=== PATIENT | female | born 1960 | race Caucasian/White ===

== ENCOUNTER 2023-12-09 11:57 | Emergency (ER) | payer MEDICAID ==
[2023-12-09 12:26] LABS: BASOPHILS # (AUTO) 0.1 10^3/uL (0.0-0.1); BASOPHILS % (AUTO) 0.7 %; EOSINOPHILS # (AUTO) 0.5 10^3/uL (0.0-0.7); EOSINOPHILS % (AUTO) 5.5 %; HCT - HEMATOCRIT 40.4 % (37.0-47.0); HGB - HEMOGLOBIN 13.5 g/dL (12.0-16.0); LYMPHOCYTES # (AUTO) 1.8 10^3/uL (1.5-3.5); LYMPHOCYTES % (AUTO) 21.2 %; MEAN CORPUSCULAR HEMOGLOBIN 30.1 pg (27.0-31.0); MEAN CORPUSCULAR HGB CONC 33.4 g/dL (32.0-36.0); MEAN CORPUSCULAR VOLUME 90.2 fL (81.0-99.0); MEAN PLATELET VOLUME 9.9 fL (7.9-10.8); MONOCYTES # (AUTO) 0.5 10^3/uL (0.0-1.0); MONOCYTES % (AUTO) 5.7 %; NEUTROPHILS # (AUTO) 5.8 10^3/uL (1.5-6.6); NEUTROPHILS % (AUTO) 66.7 %; PLT - PLATELET COUNT 319 10^3/uL (130-450); RED BLOOD COUNT 4.48 10^6/uL (4.20-5.40); RED CELL DISTRIBUTION WIDTH 13.2 % (12.0-15.0); WHITE BLOOD COUNT 8.7 x10^3/uL (4.8-10.8)
--- NOTE | 2023-12-09 12:27 | ED Physician Documentation ---
PD HPI CHEST PAIN - Stated complaint Stated Complaint: CHEST PX - Chief complaint Chief Complaint: Cardiac - History obtained from History obtained from: Patient - History of Present Illness Timing - onset: How many hours ago (2), Today Timing - onset during: Other (after lawrence chi this morning) Timing - duration: Hours (2) Timing - details: Abrupt onset Pain level max: 6 Pain level now: 1 Quality: Pressure Location: Substernal Radiation: No: Jaw, Neck, Back, Abdominal, Left upper extremity, Right upper extremity Improved by: Nothing. No: Rest Worsened by: No: Exertion, Inspiration, Eating, Movement, Palpation, Position Associated symptoms: No: Shortness of air, Diaphoresis, Nausea, Vomiting, Feeling faint / dizzy, General Weakness, Palpitations, Cough Recently seen: Not recently seen Review of Systems Constitutional: denies: Fever, Chills Nose: denies: Rhinorrhea / runny nose, Congestion Cardiac: denies: Palpitations Respiratory: denies: Dyspnea, Cough GI: denies: Nausea, Vomiting, Diarrhea Skin: denies: Rash Musculoskeletal: denies: Neck pain, Back pain Neurologic: denies: Headache PD PAST MEDICAL HISTORY - Past Medical History Past Medical History: Yes Cardiovascular: Hypertension Endocrine/Autoimmune: Type 2 diabetes, HyPOthyroidism - Past Surgical History Past Surgical History: Yes HEENT: Tonsil/Adenoidectomy - Allergies Allergies/Adverse Reactions: Allergies Allergy/AdvReac Type Severity Reaction Status Date / Time No Known Drug Allergies Allergy Verified 12/09/23 12:03 - Social History Does the pt smoke?: No Smoking Status: Never smoker Does the pt drink ETOH?: No Does the pt have substance abuse?: No - Immunizations Immunizations are current?: Yes - POLST Patient has POLST: No PD ED PE NORMAL - Vitals Vital signs reviewed: Yes - General General: Alert and oriented X 3, No acute distress - HEENT HEENT: Moist mucous membranes - Neck Neck: Supple, no meningeal sign, No JVD, No bruit - Cardiac Cardiac: RRR, Strong equal pulses - Respiratory Respiratory: No respiratory distress, Clear bilaterally - Abdomen Abdomen: Soft, Non tender, Non distended - Back Back: No CVA TTP, No spinal TTP - Derm Derm: Warm and dry - Extremities Extremities: No edema, No calf tenderness / cord - Neuro Neuro: Alert and oriented X 3 - Psych Psych: Normal mood, Normal affect - Free text exam Free text exam: no chest wall tenderness Results - Vitals Vitals: Vital Signs - 24 hr 12/09/23 12/09/23 12/09/23 12:03 12:41 13:11 Temperature 36.8 C Heart Rate 83 73 71 Respiratory 16 17 18 Rate Blood Pressure 160/84 H 123/96 H 136/75 H O2 Saturation 96 94 93 12/09/23 12/09/23 12/09/23 13:41 14:00 14:30 Temperature Heart Rate 69 68 68 Respiratory 18 17 17 Rate Blood Pressure 135/76 H 130/75 136/77 H O2 Saturation 94 94 94 Oxygen O2 Source Room air - EKG (time done) 1208 EKG releavant findings:: EKG personally interpreted by author of this note. Relevant findings are: Rate: Rate (enter#) (77) Rhythm: NSR [place]: Normal Intervals: Normal [place] QRS: Normal Ischemia: Normal ST segments - Labs Labs: Laboratory Tests 12/09/23 12/09/23 12/09/23 12:21 12:21 14:01 WBC 8.7 RBC 4.48 Hgb 13.5 Hct 40.4 MCV 90.2 MCH 30.1 MCHC 33.4 RDW 13.2 Plt Count 319 MPV 9.9 Neut # (Auto) 5.8 Lymph # (Auto) 1.8 Pender # (Auto) 0.5 Eos # (Auto) 0.5 Baso # (Auto) 0.1 Absolute Nucleated RBC 0.00 Nucleated RBC % 0.0 Sodium 138 Potassium 3.7 Chloride 103 Carbon Dioxide 28 Anion Gap 7.0 BUN 10 Creatinine 0.6 Estimated GFR (MDRD) 102 Glucose 141 H Calcium 9.9 Total Bilirubin 0.7 AST 22 ALT 22 Alkaline Phosphatase 62 Troponin I High Sens 3.0 3.0 Total Protein 7.2 Albumin 4.5 Globulin 2.7 Albumin/Globulin Ratio 1.7 Lipase 15 - Rads (name of study) cxr Relevant Findings:: Final report received, See rad report PD Medical Decision Making - ED course Complexity details: reviewed results, re-evaluated patient, considered differential (No ST elevation AK, no aortic dissection, no PE, no tension pneumothorax, no aortic aneurysm), d/w patient ED course: Patient with chest pain after lawrence chi today. Unclear etiology. No acute findings on chest x-ray, EKG, laboratory testing. Negative high sensitive troponin x 2. Asymptomatic here. No evidence of PE. No risk factors for PE. Heart score 3. No acute findings on telemetry. No evidence of ACS at this time. We will continue supportive care and have her follow-up with her doctor for cardiac stress test. Patient counseled regarding signs and symptoms for which I believe and urgent re-evaluation would be necessary. Patient with good understanding of and agreement to plan and is comfortable going home at this time This document was made in part using voice recognition software. While efforts are made to proofread this document, sound alike and grammatical errors may occur. Departure - Departure Disposition: Home, Self Care Clinical Impression: Chest pain Qualifiers: Chest pain type: unspecified Qualified Code(s): R07.9 - Chest pain, unspecified Condition: Good Instructions: ED Chest Pain Atypical Unkn Cause Follow-Up: JERONIMO STOCKTON MD [Primary Care Provider] - Within 1 week Comments: Your EKG, chest x-ray and laboratory testing are normal today. The cause of your symptoms is unclear but does not appear to be related to your heart. Please follow-up with your doctor for further care including a cardiac stress test. Please return if you worsen. Forms: PCP List Discharge Date/Time: 12/09/23 14:48
--- NOTE | 2023-12-09 12:45 | XRAY Report ---
PROCEDURE: Chest 1V INDICATIONS: Chest pain TECHNIQUE: One view of the chest was acquired. COMPARISON: None. FINDINGS: Surgical changes and devices: None. Lungs and pleura: No pleural effusions or pneumothorax. Lungs are clear. Mediastinum: Mediastinal contours appear normal. Heart size is normal. Bones and chest wall: No suspicious bony lesions. Overlying soft tissues appear unremarkable. IMPRESSION: No acute cardiopulmonary process. Reviewed by: Wilma Hickman MD, PhD on 12/09/2023 12:43 PM PDT Approved by: Wilma Hickman MD, PhD on 12/09/2023 12:43 PM PDT Station ID: [id number]
[2023-12-09 12:46] LABS: ALBUMIN 4.5 g/dL (3.2-5.5); ALBUMIN/GLOBULIN RATIO 1.7 (1.0-2.2); BILIRUBIN,TOTAL 0.7 mg/dL (0.2-1.0); CALCIUM 9.9 mg/dL (8.5-10.3); CREATININE 0.6 mg/dL (0.6-1.3); POTASSIUM 3.7 mmol/L (3.5-4.5); TOTAL PROTEIN 7.2 g/dL (6.4-8.9)
[2023-12-09 13:51] VITALS: O2SAT 94
[2023-12-09 14:51] VITALS: BP 136/77
== END 2023-12-09 14:48 | disposition home or self-care (01) ==
LOC: ED 11:57
DX: R07.9 Chest pain, unspecified (principal); I10 Essential (primary) hypertension; E11.9 Type 2 diabetes mellitus without complications; E03.9 Hypothyroidism, unspecified
CPT/HCPCS: 36415; 80053; 83690; 84484; 85025; 93005; 99283; 99284